=== PATIENT | female | born 1950 | race Two or more races ===

== ENCOUNTER → 2018-03-27 | Day surgery (SDC) | payer MEDICARE, OTHER ==
[~2018-03-27] MED LIST: AMLO2.5T PO; BENA25CA4 PO; CETI-1 PO; CLAR10CA3 PO; IOHEXOL 180 MG/ML 20 ML VIAL (for RAD DIAG) NERV BLOCK ONE; LIDOCAINE HCL 1% 30 ML VIAL INFIL ONE; MAPA500T13 PO; PROPOFOL 200 MG/20 ML AMP IV ONE; SERT-129 PO; SIMV20TA PO; TRIAMCINOLONE ACETONIDE 40 MG/ML VIAL NERV BLOCK ONE
--- NOTE | 2018-03-27 10:15 | M6 ---
cc: Candida Ricks MD DATE: 03/27/2018 PROCEDURE PERFORMED: Fluoroscopically-guided right S1 transforaminal epidural steroid injection. History and physical was completed and signed. Consent was signed. Procedure site was marked. Medications were listed and reconciled. Pain score was recorded. Allergies were noted. Time out was taken. Fluoroscopy time was recorded where applicable. Sedation was administered or directed by Dr. Ricks. The patient was given oxygen. The patient was monitored by a registered nurse. Total procedure time was greater than 15 minutes. PROCEDURE NOTE: IV was started. Blood pressure cuff pulse oximeter and EKG were applied. The patient was placed in the prone position on a Heri table, sedated with small amounts of propofol titrated to effect. Vital signs were monitored and remained stable throughout the procedure. The lumbosacral area was prepped with alcohol and 10% Betadine solution and draped with sterile drapes. Fluoroscopy was used in both the AP and lateral projection to clearly visualize the right S1 neural foramen. Then, 3.5 inch 22 gauge Chiba needle was advanced through the neural foramen under fluoroscopic guidance. There was negative aspiration for blood and any other type of fluid. Omnipaque dye was injected and seen to spread distally and medially along the S1 nerve root. This will be analyzed separately. At this point, the patient was given 3 mL of Xylocaine 0.5% and 60 mg of Kenalog. Following the procedure, the patient was taken to the recovery room with stable vital signs neurologically intact. She will be evaluated immediately and with followup to determine if she has a subjective decrease in her usual pain and a corresponding objective increase in her functional capability. Candida Ricks MD [facility] , 10:02 AM , 10:14 AM
--- NOTE | 2018-03-27 10:21 | M6 ---
cc: Candida Ricks MD DATE: 03/27/2018 DATE OF : 1950 PROCEDURE: Epidurogram. Images were saved to the patient's chart. HISTORY: Ms. Dee has right lower extremity pain. She had a right sacroiliac joint injection on 03/13/2018 which relieved some of her right-sided back pain, but her right lower extremity pain persisted. IMAGING STUDIES: Her previous MRI done a year ago on 04/11/2017 shows a right-sided bulging disc with a lateral recess stenosis at L4-L5. The epidurogram was performed in order to determine if there was good flow of the injected medication from the right S1 nerve root in a cephalad direction in the central epidural space and to determine if there was any obstruction of flow because of fairly severe right lateral recess stenosis at L4-L5. PROCEDURE: : A total of 3 mL of Omnipaque was injected. The right S1 nerve root was clearly outlined with dye spreading in a distal direction as well as in a medial and cephalad direction. The dye spread up to the L5 level, but not above the L5 level. ASSESSMENT AND PLAN: Possible severe right lateral recess stenosis at L4-L5. This may impact our decision on proper procedures in the future. MD JASWINDER LevineM/TITO , 10:06 AM , 10:21 AM
== END | disposition home or self-care (01) ==
LOC: PHSDC 07:59
PROVIDERS: ATTEND Pain Medicine Interventional Pain Medicine
DX: M54.5 Low back pain (principal); M79.661 Pain in right lower leg
CPT/HCPCS: 64483; 99152; J3301; Q9965

== ENCOUNTER → 2018-05-01 | Day surgery (SDC) | payer MEDICARE, OTHER ==
[~2018-05-01] MED LIST changes: +BUPIVACAINE HCL PF 0.75% 30 ML VIAL ONE; -IOHEXOL 180 MG/ML 20 ML VIAL (for RAD DIAG) NERV BLOCK ONE; -LIDOCAINE HCL 1% 30 ML VIAL INFIL ONE; +TRIAMCINOLONE ACETONIDE 40 MG/ML VIAL I-ARTICULR ONE; -TRIAMCINOLONE ACETONIDE 40 MG/ML VIAL NERV BLOCK ONE
--- NOTE | 2018-05-01 09:01 | M6 ---
cc: Candida Ricks MD DATE: 05/01/2018 PROCEDURE PERFORMED: Fluoroscopically-guided injection, bilateral lumbar facet joints (bilateral L3-4, L4-5, and L5-S1 facet joints). History and physical was completed and signed. Consent was signed. Procedure site was marked. Medications were listed and reconciled. Pain score was recorded. Allergies were noted. Time out was taken. Fluoroscopy time was recorded where applicable. Sedation was administered or directed by Dr. Ricks. The patient was given oxygen. The patient was monitored by a registered nurse. Total procedure time was greater than 15 minutes. PROCEDURE NOTE: IV was started. Blood pressure cuff, pulse oximeter and EKG were applied. The patient was placed in the prone position on a Heri table, sedated with small amounts of propofol titrated to effect. Vital signs were monitored and remained stable throughout the procedure. Fluoroscopy was used in a Adi dog view to clearly visualize the bilateral lumbar facet joints at L3-4, L4-5 and L5-S1. Separate sterile 3.5-inch, 25-gauge spinal needles were advanced into these joints under fluoroscopic guidance. There was negative aspiration for blood or any other type of fluid and at each location, the patient was given 1 mL of Marcaine 0.75% which contained 10 mg of Kenalog. Following the procedure, the patient was taken to the recovery room with stable vital signs neurologically intact. She will be evaluated immediately and with followup to determine if she has a subjective decrease in her usual pain and a corresponding objective increase in her functional capabilities. Candida Ricks MD [facility] , 08:51 AM , 09:00 AM
== END | disposition home or self-care (01) ==
LOC: PHSDC 07:07
PROVIDERS: ATTEND Pain Medicine Interventional Pain Medicine
DX: M54.5 Low back pain (principal)
CPT/HCPCS: 64493; 64494; 64495; 99152; J3301